=== PATIENT | female | born 1950 | race Caucasian/White ===

== ENCOUNTER 2021-09-07 23:11 | Emergency (ER) | payer MEDICARE, OTHER ==
[~2021-09-07] VITALS: Ht 149.9 cm; Wt 54.4 kg
[2021-09-07] MEDS ORDERED: HYDROCODONE/APAP 5MG-325MG TAB PO STA (23:56)
[2021-09-08] MEDS ORDERED: HYDROCODONE/APAP 5MG-325MG TAB ONE (00:17)
[2021-09-08] MEDS ORDERED: MOTRIN200 MG PO (02:03)
[2021-09-08] MEDS ORDERED: HYDROCODON-ACE1 EA11 PO (02:03)
== END 2021-09-08 02:20 | disposition home or self-care (01) ==
LOC: ER 23:16
DX: S92.001A Unspecified fracture of right calcaneus, initial encounter for closed fracture (principal); W22.8XXA Striking against or struck by other objects, initial encounter; Y92.89 Other specified places as the place of occurrence of the external cause
CPT/HCPCS: 99283